=== PATIENT | female | born 1960 | race Caucasian/White ===

== ENCOUNTER → 2017-05-23 | Outpatient (CLI) | payer OTHER | LOC: FIMAGING 14:03 | PROVIDERS: ATTEND Physician Assistant | DX: Z12.31 Encounter for screening mammogram for malignant neoplasm of breast (principal) | CPT/HCPCS: G0202 ==

== ENCOUNTER → 2017-08-08 | Outpatient (CLI) | payer OTHER | LOC: BRMIMAGING 13:25 | PROVIDERS: ATTEND Physician Assistant | DX: Z13.820 Encounter for screening for osteoporosis (principal); M85.80 Other specified disorders of bone density and structure, unspecified site; Z78.0 Asymptomatic menopausal state; Z82.62 Family history of osteoporosis ==

== ENCOUNTER → 2018-07-17 | Outpatient (CLI) | payer OTHER | LOC: BMCIMAGING 07:38 | PROVIDERS: ATTEND Physician Assistant | DX: Z12.31 Encounter for screening mammogram for malignant neoplasm of breast (principal) ==